=== PATIENT | female | born 1960 | race Two or more races ===

== ENCOUNTER → 2017-12-02 | Emergency (ER) | payer OTHER ==
[~2017-12-02] VITALS: Ht 157.5 cm; Wt 66.7 kg
== END | disposition home or self-care (01) ==
LOC: ER 16:05
DX: R10.32 Left lower quadrant pain (principal); R51 Headache

== ENCOUNTER 2018-08-28 07:26 | Outpatient (CLI) | payer OTHER | END 2018-08-28 07:33 | disposition home or self-care (01) | LOC: MAMO-SONO 07:26 | DX: Z12.31 Encounter for screening mammogram for malignant neoplasm of breast (principal) ==

== ENCOUNTER 2018-12-22 16:01 | Emergency (ER) | payer OTHER ==
[~2018-12-22] VITALS: Ht 157.5 cm; Wt 64.4 kg
== END 2018-12-23 01:32 | disposition home or self-care (01) ==
LOC: ER 16:01
DX: R10.32 Left lower quadrant pain (principal); K29.70 Gastritis, unspecified, without bleeding; R11.0 Nausea

== ENCOUNTER → 2020-05-08 | Emergency (ER) | payer OTHER ==
[~2020-05-08] VITALS: Ht 157.5 cm; Wt 67.1 kg
== END | disposition home or self-care (01) ==
LOC: ER 16:11
DX: R10.84 Generalized abdominal pain (principal)
CPT/HCPCS: 74177; Q9965

== ENCOUNTER → 2020-06-02 | Emergency (ER) | payer OTHER ==
[~2020-06-02] VITALS: Ht 157.5 cm; Wt 68.0 kg
[~2020-06-02] MED LIST: CIPRO500 MG
== END | disposition home or self-care (01) ==
LOC: ER 22:09
DX: R10.13 Epigastric pain (principal); R10.32 Left lower quadrant pain; Z20.828 Contact with and (suspected) exposure to other viral communicable diseases

== ENCOUNTER 2020-09-22 08:05 | Emergency (ER) | payer OTHER ==
[~2020-09-22] VITALS: Ht 162.6 cm; Wt 68.9 kg
[2020-09-22] MEDS ORDERED: VITAMIN C1000 MG PO (11:40)
[2020-09-22] MEDS ORDERED: VITAMIN D3250 MC1 PO (11:40)
[2020-09-22] MEDS ORDERED: ZINC50 M1 PO (11:40)
== END 2020-09-22 11:38 | disposition home or self-care (01) ==
LOC: ER 08:05
DX: U07.1 COVID-19 (principal); J22 Unspecified acute lower respiratory infection; R06.02 Shortness of breath

== ENCOUNTER 2020-10-04 11:51 | Emergency (ER) | payer OTHER ==
[~2020-10-04] VITALS: Ht 157.5 cm; Wt 68.0 kg
[~2020-10-04 11:51] MED LIST changes: +VITAMIN C1000 MG PO; +VITAMIN D3250 MC1 PO; +ZINC50 M1 PO
== END 2020-10-04 17:39 | disposition home or self-care (01) ==
LOC: ER 11:51
DX: U07.1 COVID-19 (principal); R07.89 Other chest pain; R00.2 Palpitations

== ENCOUNTER 2020-11-22 17:10 | Emergency (ER) | payer OTHER ==
[~2020-11-22] VITALS: Ht 160 cm; Wt 71.7 kg
== END 2020-11-22 18:21 | disposition home or self-care (01) ==
LOC: ER 17:10
DX: R05 Cough (principal); Z03.818 Encounter for observation for suspected exposure to other biological agents ruled out

== ENCOUNTER 2021-07-12 09:23 | Outpatient (CLI) | payer OTHER | END 2021-07-25 09:24 | disposition home or self-care (01) | LOC: MAMO-SONO 09:23 | PROVIDERS: ATTEND Specialist | DX: R92.0 Mammographic microcalcification found on diagnostic imaging of breast (principal); Z12.31 Encounter for screening mammogram for malignant neoplasm of breast ==

== ENCOUNTER 2021-12-24 20:34 | Emergency (ER) | payer OTHER ==
[~2021-12-24] VITALS: Ht 160 cm; Wt 63.5 kg
== END 2021-12-24 21:46 | disposition home or self-care (01) ==
LOC: ER 20:34
DX: S00.83XA Contusion of other part of head, initial encounter (principal); X58.XXXA Exposure to other specified factors, initial encounter; Y92.9 Unspecified place or not applicable; R04.0 Epistaxis; Z88.5 Allergy status to narcotic agent

== ENCOUNTER 2022-03-10 12:30 | Outpatient (CLI) | payer OTHER | END 2022-03-10 12:31 | disposition home or self-care (01) | LOC: LAB 12:30 | DX: Z20.822 Contact with and (suspected) exposure to COVID-19 (principal) ==

== ENCOUNTER 2022-04-03 10:59 | Outpatient (CLI) | payer OTHER | END 2022-04-03 11:03 | disposition home or self-care (01) | LOC: NUCLEAR 10:59 | DX: R00.2 Palpitations (principal); Z88.5 Allergy status to narcotic agent ==

== ENCOUNTER 2022-04-03 13:25 | Outpatient (CLI) | payer OTHER | END 2022-04-03 13:35 | disposition home or self-care (01) | LOC: PPH VACUNA 13:25 | PROVIDERS: ATTEND Emergency Medicine Pediatric Emergency Medicine | DX: Z23 Encounter for immunization (principal) ==

== ENCOUNTER 2022-04-18 07:26 | Outpatient (CLI) | payer OTHER | END 2022-04-18 07:27 | disposition home or self-care (01) | LOC: NUCLEAR 07:26 | PROVIDERS: ATTEND Internal Medicine | DX: R00.2 Palpitations (principal) | CPT/HCPCS: 78452; 93017; A9500; J0153 ==

== ENCOUNTER → 2022-09-12 | Emergency (ER) | payer OTHER ==
[~2022-09-12] VITALS: Ht 157.5 cm; Wt 68.0 kg
== END | disposition home or self-care (01) ==
LOC: ER 14:42
DX: K76.0 Fatty (change of) liver, not elsewhere classified (principal); K57.90 Diverticulosis of intestine, part unspecified, without perforation or abscess without bleeding; Z20.822 Contact with and (suspected) exposure to COVID-19

== ENCOUNTER 2023-11-07 14:25 | Emergency (ER) | payer OTHER ==
[~2023-11-07] VITALS: Ht 157.5 cm; Wt 68.9 kg
[~2023-11-07 14:25] MED LIST changes: +INDERAL LA80 MG PO
[2023-11-07 17:00] LABS: HEMATOCRIT 43.7 % (36.0-45.00); HEMOGLOBIN 14.6 g/dL (12.0-15.00); MEAN CELL VOLUME 94.5 fL (80.00-100.00); MEAN CORPUSCULAR HEMOGLOBIN 31.6 pg (27.00-32.0); MEAN CORPUSCULAR HGB CONC 33.4 g/dl (32.0-36.0); PLATELET COUNT 330 K/uL (150-450); RED BLOOD COUNT 4.62 M/uL (4.00-6.00); RED CELL DISTRIBUTION WIDTH 12.7 % (11.5-14.5)
[2023-11-07 17:22] LABS: CALCIUM 9.5 mg/dL (8.5-10.1); CREATININE SERUM 0.83 mg/dL (0.55-1.02); GFR 69.66; POTASSIUM 4.07 mEq/L (3.5-5.1)
[2023-11-07 17:42] LABS: URINE APPEARANCE Clear; URINE BILIRRUBIN Negative (NEGATIVE); URINE BLOOD Negative; URINE COLOR Yellow; URINE GLUCOSE Negative (NEGATIVE); URINE LEUKOCYTE Moderate; URINE NITRATE Negative; URINE PROTEIN Negative (NEGATIVE); URINE UROBILINOGEN 0.2 E.U./dl
[2023-11-07 17:47] LABS: URINE BACTERIA 249.4 uL (0.0-1933); URINE EPITHELIAL CELLS 19.3 uL (0.0-38.8); URINE RBC 3.5 uL (0.0-20.8); URINE WBC 145.4 uL (0.0-23.2)
== END 2023-11-07 17:50 | disposition home or self-care (01) ==
LOC: ER 14:25
PROVIDERS: General Practice
DX: K21.9 Gastro-esophageal reflux disease without esophagitis (principal)

== ENCOUNTER 2024-05-05 15:01 | Emergency (ER) | payer OTHER ==
[~2024-05-05] VITALS: Ht 160 cm; Wt 70.8 kg
[2024-05-05] MEDS ORDERED: 0.9 % SODIUM CHLORIDE 500 ML IV ONE (15:30)
[2024-05-05] MEDS ORDERED: FAMOTIDINE/PF 20 MG/2 ML VIAL IV ONE (15:30)
[2024-05-05] MEDS ORDERED: KETOROLAC TROMETHAMINE 30 MG VIAL IV ONE (15:30)
[2024-05-05 16:05] LABS: HEMATOCRIT 39.8 % (36.0-45.00); HEMOGLOBIN 13.4 g/dL (12.0-15.00); MEAN CELL VOLUME 93.2 fL (80.00-100.00); MEAN CORPUSCULAR HEMOGLOBIN 31.4 pg (27.00-32.0); MEAN CORPUSCULAR HGB CONC 33.7 g/dl (32.0-36.0); PLATELET COUNT 315 K/uL (150-450); RED BLOOD COUNT 4.27 M/uL (4.00-6.00); RED CELL DISTRIBUTION WIDTH 13.1 % (11.5-14.5)
[2024-05-05 16:07] LABS: URINE APPEARANCE Cloudy; URINE BACTERIA 1908.7 uL (0.0-1933); URINE BILIRRUBIN Negative (NEGATIVE); URINE BLOOD Negative; URINE COLOR Yellow; URINE EPITHELIAL CELLS 94.7 uL (0.0-38.8); URINE GLUCOSE Negative (NEGATIVE); URINE LEUKOCYTE Moderate; URINE NITRATE Negative; URINE PROTEIN Negative (NEGATIVE); URINE RBC 5.3 uL (0.0-20.8); URINE UROBILINOGEN 0.2 E.U./dl; URINE WBC 274.1 uL (0.0-23.2)
[2024-05-05 16:41] LABS: ALBUMIN 3.5 gm/dL (3.4-5.0); BILIRUBIN TOTAL 0.5 mg/dL (0.3-1.2); CALCIUM 9.1 mg/dL (8.5-10.1); CREATININE SERUM 0.81 mg/dL (0.55-1.02); GFR 71.64; GLOBULINA 3.9 G/DL (2.4-3.5); POTASSIUM 4.08 mEq/L (3.5-5.1); TOTAL PROTEIN 7.4 gm/dL (6.4-8.2)
[2024-05-05] MEDS ORDERED: levoFLOXacin IN DEXTROSE 5 % 5 MG/ML PIGGYBAG IV ONE (17:15)
[2024-05-05] MEDS ORDERED: LEVOFLOXACIN750 MG PO (17:24)
== END 2024-05-05 18:42 ==
LOC: ER 15:02
PROVIDERS: Nurse Practitioner Family
DX: R10.32 Left lower quadrant pain (principal); K57.32 Diverticulitis of large intestine without perforation or abscess without bleeding; G43.809 Other migraine, not intractable, without status migrainosus; Z88.8 Allergy status to other drugs, medicaments and biological substances

== ENCOUNTER 2024-08-13 07:15 | Outpatient (CLI) | payer OTHER ==
[~2024-08-13 07:15] MED LIST changes: +LEVOFLOXACIN750 MG PO
== END 2024-08-13 07:25 | disposition home or self-care (01) ==
LOC: MAMO-SONO 07:15
PROVIDERS: ATTEND Specialist
DX: R10.13 Epigastric pain (principal); N60.11 Diffuse cystic mastopathy of right breast; N60.12 Diffuse cystic mastopathy of left breast

== ENCOUNTER 2024-11-13 10:07 | Outpatient (CLI) | payer OTHER | END 2024-11-13 10:21 | disposition home or self-care (01) | LOC: TOM 10:07 | PROVIDERS: ATTEND Internal Medicine Gastroenterology | DX: K76.0 Fatty (change of) liver, not elsewhere classified (principal) ==

== ENCOUNTER 2025-01-16 11:41 | Outpatient (CLI) | payer OTHER ==
[2025-01-16 13:00] LABS: CREATININE SERUM 0.83 mg/dL (0.55-1.02); GFR 69.43
== END 2025-01-16 11:46 | disposition home or self-care (01) ==
LOC: LAB 11:41
PROVIDERS: ATTEND Radiology Diagnostic Radiology
DX: R10.9 Unspecified abdominal pain (principal); K40.00 Bilateral inguinal hernia, with obstruction, without gangrene, not specified as recurrent

== ENCOUNTER → 2025-01-16 | Outpatient (CLI) | payer OTHER | END | disposition home or self-care (01) | LOC: MRI 12:34 | DX: R10.9 Unspecified abdominal pain (principal); K40.00 Bilateral inguinal hernia, with obstruction, without gangrene, not specified as recurrent | CPT/HCPCS: 72197; 74181 ==

== ENCOUNTER 2025-01-24 07:36 | Outpatient (CLI) | payer OTHER ==
[2025-01-24 09:12] LABS: C-REACTIVE PROTEIN 0.45 MG/DL (0.00-0.29)
== END 2025-01-24 07:37 | disposition home or self-care (01) ==
LOC: LAB 07:36
PROVIDERS: ATTEND Internal Medicine Hematology & Oncology
DX: C83.80 Other non-follicular lymphoma, unspecified site (principal); C88.80 Other malignant immunoproliferative diseases not having achieved remission

== ENCOUNTER → 2025-01-29 | Outpatient (CLI) | payer OTHER | END | disposition home or self-care (01) | LOC: SONOGRAMA 10:21 | PROVIDERS: ATTEND Pathology Anatomic Pathology & Clinical Pathology | DX: C85.15 Unspecified B-cell lymphoma, lymph nodes of inguinal region and lower limb (principal) ==

== ENCOUNTER 2025-02-06 07:27 | Outpatient (CLI) | payer OTHER | END 2025-02-06 07:28 | disposition home or self-care (01) | LOC: NUCLEAR 07:27 | PROVIDERS: ATTEND Internal Medicine Hematology & Oncology | DX: C08.0 Malignant neoplasm of submandibular gland (principal) ==

== ENCOUNTER 2025-03-03 06:48 | Day surgery (SDC) | payer OTHER ==
[2025-02-25 07:55] VITALS: BP 116/76
[2025-02-25 08:16] LABS: URINE APPEARANCE Clear; URINE BILIRRUBIN Negative (NEGATIVE); URINE BLOOD Negative; URINE COLOR Yellow; URINE GLUCOSE Negative (NEGATIVE); URINE KETONE Negative (NEGATIVE); URINE LEUKOCYTE Moderate; URINE NITRATE Negative; URINE PROTEIN Negative (NEGATIVE); URINE UROBILINOGEN 0.2 E.U./dl
[2025-02-25 08:17] LABS: URINE BACTERIA 327.9 uL (0.0-1933); URINE EPITHELIAL CELLS 19.3 uL (0.0-38.8); URINE WBC 64.8 uL (0.0-23.2)
[2025-02-25 08:19] LABS: HEMATOCRIT 39.8 % (36.0-45.00); HEMOGLOBIN 13.3 g/dL (12.0-15.00); MEAN CELL VOLUME 94.7 fL (80.00-100.00); MEAN CORPUSCULAR HEMOGLOBIN 31.6 pg (27.00-32.0); MEAN CORPUSCULAR HGB CONC 33.4 g/dl (32.0-36.0); PLATELET COUNT 288 K/uL (150-450); RED BLOOD COUNT 4.21 M/uL (4.00-6.00); RED CELL DISTRIBUTION WIDTH 12.8 % (11.5-14.5)
[2025-02-25 08:57] LABS: INR 0.94; PARTIAL THROMBOPLASTIN TIME 25.4 SECONDS (22.0-34.0); PROTHROMBIN TIME 10.3 SECONDS (9.0-11.5)
[2025-02-25 09:04] LABS: ALBUMIN 3.6 gm/dL (3.4-5.0); BILIRUBIN TOTAL 0.39 mg/dL (0.3-1.2); CALCIUM 9.6 mg/dL (8.5-10.1); CREATININE SERUM 0.78 mg/dL (0.55-1.02); GFR 74.59; GLOBULINA 3.5 G/DL (2.4-3.5); POTASSIUM 4.29 mEq/L (3.5-5.1); TOTAL PROTEIN 7.1 gm/dL (6.4-8.2)
[2025-02-25 09:05] LABS: URINE RBC 1.9 uL (0.0-20.8)
[~2025-03-03] VITALS: Ht 160 cm; Wt 68.0 kg
[2025-03-03] MEDS ORDERED: CEFAZOLIN SODIUM 1,000 MG VIAL ONE ×2 (12:24→15:31)
[2025-03-03] MEDS ORDERED: HEPARIN SODIUM,PORCINE/PF 100 UNIT/ML SYRINGE IV ONE (12:56)
[2025-03-03] MEDS ORDERED: LIDOCAINE HCL 1% 20 ML VIAL IJ ONE ×2 (13:25→13:43)
[2025-03-03] MEDS ORDERED: FAMOTIDINE/PF 20 MG/10 ML SYRINGE IV SCH (15:30)
[2025-03-03] MEDS ORDERED: CEFAZOLIN SODIUM 1,000 MG VIAL IV SCH (15:30)
[2025-03-03] MEDS ORDERED: FAMOTIDINE/PF 20 MG/2 ML VIAL ONE (15:31)
== END 2025-03-03 16:05 | disposition home or self-care (01) ==
LOC: CIR.AMB 06:48
PROVIDERS: ATTEND Specialist
DX: C85.94 Non-Hodgkin lymphoma, unspecified, lymph nodes of axilla and upper limb (principal)
CPT/HCPCS: 36561; C1751

== ENCOUNTER 2025-04-11 07:19 | Outpatient (CLI) | payer OTHER ==
[2025-04-11 08:37] LABS: BASO % 1.3 % (0.1-1.2); EOS # 0.07 (0.04-0.54); EOS % 1.2 % (0.7-7.0); LYMPH # 1.69 (1.18-3.74); MEAN CORPUSCULAR HEMOGLOBIN 30.7 pg (25.6-32.2); MONO # 1.09 (0.24-0.82); NEUT # 3.07 (1.56-6.13); NEUT % 50.8 % (34.0-71.1); PLATELET COUNT 399 K/uL (163-369); RED BLOOD COUNT 4.23 M/uL (3.93-5.22); RED CELL DISTRIBUTION WIDTH 12.1 % (11.6-14.4)
[2025-04-11 09:32] LABS: ALBUMIN 3.6 gm/dL (3.4-5.0); BILIRUBIN TOTAL 0.29 mg/dL (0.3-1.2); CREATININE SERUM 0.76 mg/dL (0.55-1.02); GFR 76.86; GLOBULINA 3.8 G/DL (2.4-3.5); POTASSIUM 4.04 mEq/L (3.5-5.1); TOTAL PROTEIN 7.4 gm/dL (6.4-8.2)
== END 2025-04-11 07:26 | disposition home or self-care (01) ==
LOC: LAB 07:19
PROVIDERS: ATTEND Internal Medicine Hematology & Oncology
DX: D64.9 Anemia, unspecified (principal); R74.01 Elevation of levels of liver transaminase levels

== ENCOUNTER 2025-05-09 07:14 | Outpatient (CLI) | payer OTHER ==
[2025-05-09 08:36] LABS: EOS # 0.11 (0.04-0.54); EOS % 2.0 % (0.7-7.0); LYMPH # 0.94 (1.18-3.74); LYMPH % 17.2 % (19.3-53.1); MEAN PLATELET VOLUME 9.20 fl (9.4-12.4); MONO # 1.24 (0.24-0.82); NEUT # 2.97 (1.56-6.13); NEUT % 54.3 % (34.0-71.1); RED CELL DISTRIBUTION WIDTH 13.0 % (11.6-14.4)
[2025-05-09 08:37] LABS: BASO % 3.1 % (0.1-1.2); MONO % 22.7 % (4.7-12.5)
== END 2025-05-09 07:20 | disposition home or self-care (01) ==
LOC: LAB 07:14
PROVIDERS: ATTEND Internal Medicine Hematology & Oncology
DX: D50.0 Iron deficiency anemia secondary to blood loss (chronic) (principal); D63.8 Anemia in other chronic diseases classified elsewhere; D63.0 Anemia in neoplastic disease; D50.8 Other iron deficiency anemias

== ENCOUNTER 2025-05-25 07:37 | Inpatient (IN) | payer OTHER ==
[~2025-05-25] VITALS: Ht 160 cm; Wt 64.9 kg
--- NOTE | 2025-05-25 07:49 | NUR ---
PACIENTE FEMINA, S/V EN PARAMETROS, C/C SUDORACION HX CANCER UBICADA EN SECCION K PARA SER REEVALUADA POR
[2025-05-25] MEDS ORDERED: 0.9 % SODIUM CHLORIDE 1,000 ML IV STA (08:33)
--- NOTE | 2025-05-25 10:11 | NUR ---
SE EDUCA SOBRE [place] MEDICO, ESTA REFIERE ENTENDER. SE EXTRAEN MUESTRAS DE LABORATORIO KEN ORDEN MEDICA. PENDIENTE U/A.
[2025-05-25 10:32] LABS: EOS # 0.04 (0.04-0.54); EOS % 7.8 % (0.7-7.0); LYMPH # 0.21 (1.18-3.74); LYMPH % 41.2 % (19.3-53.1); MEAN PLATELET VOLUME 9.30 fl (9.4-12.4); MONO # 0.16 (0.24-0.82); NEUT # 0.07 (1.56-6.13); NEUT % 13.7 % (34.0-71.1); RED CELL DISTRIBUTION WIDTH 13.2 % (11.6-14.4)
[2025-05-25 10:36] LABS: BASO % 5.9 % (0.1-1.2); MONO % 31.4 % (4.7-12.5)
[2025-05-25] MEDS ORDERED: FILGRASTIM-AAFI 480 MCG/0.8 ML SYRINGE SUBCUTANEO ONE ×2 (10:45→11:00)
[2025-05-25 10:58] LABS: COVID-19 AG NEGATIVE (NEGATIVE)
[2025-05-25 11:15] LABS: URINE APPEARANCE Clear; URINE BILIRRUBIN Negative (NEGATIVE); URINE BLOOD Negative; URINE COLOR Yellow; URINE GLUCOSE Negative (NEGATIVE); URINE KETONE Negative (NEGATIVE); URINE LEUKOCYTE Negative; URINE NITRATE Negative; URINE PROTEIN Negative (NEGATIVE); URINE UROBILINOGEN 0.2 E.U./dl
[2025-05-25 11:17] LABS: URINE BACTERIA 264.0 uL (0.0-1933); URINE EPITHELIAL CELLS 10.2 uL (0.0-38.8); URINE WBC 5.3 uL (0.0-23.2)
[2025-05-25 11:25] LABS: ALT/SGPT 59.0 U/L (12-78); AST/SGOT 43.0 U/L (15-37); BILIRUBIN TOTAL 0.52 mg/dL (0.3-1.2); BUN CREA RATIO 10.0 (7.0-25.0); CREATININE SERUM 0.63 mg/dL (0.55-1.02); GFR 95.44; GLOBULINA 4.1 G/DL (2.4-3.5); GLUCOSE FASTING 100.0 mg/dL (65-100); OSMOLALITY SERUM 279.0 MOSM/KG (275-295)
[2025-05-25 11:57] LABS: URINE CAST 0.14 uL (0.0-1.40); URINE RBC 1.7 uL (0.0-20.8)
[2025-05-25] MEDS ORDERED: 0.9 % SODIUM CHLORIDE 1,000 ML IV SCH (18:30)
[2025-05-25] MEDS ORDERED: PIPERACILLIN/TAZOBACTAM SODIUM 3.375 GM in DEXTROSE 5 % IN WATER 100 ML IV SCH (18:35)
[2025-05-25] MEDS ORDERED: FAMOTIDINE/PF 20 MG in 0.9 % SODIUM CHLORIDE 8 ML IV PUSH SCH (18:35)
[2025-05-25] MEDS ORDERED: ONDANSETRON HCL 4 MG in 0.9 % SODIUM CHLORIDE 50 ML IV PRN (18:45)
[2025-05-25] MEDS ORDERED: ACETAMINOPHEN 500 MG GEL..CAP PO PRN (18:45)
[2025-05-25 21:27] VITALS: BP 123/81; O2SAT 96
[2025-05-25 22:34] LABS: INR 1.01
[2025-05-26 00:26] VITALS: BP 103/60; O2SAT 98
[2025-05-26 08:00] VITALS: BP 98/65; O2SAT 96
[2025-05-26] MEDS ORDERED: ENOXAPARIN SODIUM 40 MG/0.4 ML SYRINGE SUBCUTANEO SCH (09:00)
[2025-05-26] MEDS ORDERED: FILGRASTIM-AAFI 480 MCG/0.8 ML SYRINGE SUBCUTANEO SCH ×2 (09:00→12:00)
[2025-05-26 16:48] LABS: BASO % 2.0 % (0.1-1.2); EOS # 0.06 (0.04-0.54); EOS % 4.0 % (0.7-7.0); LYMPH # 0.41 (1.18-3.74); LYMPH % 27.3 % (19.3-53.1); MEAN PLATELET VOLUME 9.40 fl (9.4-12.4); MONO # 0.36 (0.24-0.82); NEUT # 0.63 (1.56-6.13); NEUT % 42.0 % (34.0-71.1); RED CELL DISTRIBUTION WIDTH 13.3 % (11.6-14.4)
[2025-05-26 17:12] LABS: MONO % 24.0 % (4.7-12.5)
[2025-05-26 17:15] LABS: LDH 290 U/L (84-246)
[2025-05-26 17:25] VITALS: BP 110/73; O2SAT 95
[2025-05-27 00:30] VITALS: BP 92/55; O2SAT 97
[2025-05-27 06:55] LABS: EOS # 0.09 (0.04-0.54); EOS % 2.7 % (0.7-7.0); LYMPH # 0.51 (1.18-3.74); LYMPH % 15.1 % (19.3-53.1); MEAN PLATELET VOLUME 9.50 fl (9.4-12.4); MONO # 0.69 (0.24-0.82); NEUT # 1.97 (1.56-6.13); NEUT % 58.2 % (34.0-71.1); RED CELL DISTRIBUTION WIDTH 13.6 % (11.6-14.4)
[2025-05-27 07:28] LABS: BAND MAN 8.0 %; BASO % 2.1 % (0.1-1.2); BASOPHIL MAN 1.0 %; EOSINOPHIL MAN 3.0 %; LYMPHOCYTE MAN 27.0 %; METAMYELOCYTE 2.0 %; MONO % 20.4 % (4.7-12.5); MONOCYTE MAN 8.0 %; NEUTROPHILS MAN 44.0 %
[2025-05-27 09:40] VITALS: BP 88/60; O2SAT 96
[2025-05-27 17:15] VITALS: BP 102/65; O2SAT 95
[2025-05-28 00:40] VITALS: BP 95/60; O2SAT 95
[2025-05-28 08:59] VITALS: BP 100/64; O2SAT 94
== END 2025-05-28 18:00 | disposition home or self-care (01) | DRG 872 ==
LOC: ER 07:37 → SURH 18:55 → MEDJ 18:55 → SEC-K 19:26 → SURH 19:43
PROVIDERS: Emergency Medicine; General Practice; Internal Medicine Hematology & Oncology; Internal Medicine Infectious Disease; ADMIT Student in an Organized Health Care Education/Training Program; ATTEND Student in an Organized Health Care Education/Training Program
DX: A41.9 Sepsis, unspecified organism (principal); C85.9A Non-Hodgkin lymphoma, unspecified, in remission; D61.818 Other pancytopenia; D70.9 Neutropenia, unspecified

== ENCOUNTER 2025-05-29 06:30 | Outpatient (CLI) | payer OTHER ==
[2025-05-29 07:20] LABS: BASO % 1.6 % (0.1-1.2); EOS # 0.04 (0.04-0.54); EOS % 0.7 % (0.7-7.0); LYMPH # 0.81 (1.18-3.74); LYMPH % 14.1 % (19.3-53.1); MEAN PLATELET VOLUME 9.30 fl (9.4-12.4); MONO # 1.28 (0.24-0.82); NEUT # 2.87 (1.56-6.13); NEUT % 49.8 % (34.0-71.1); RED CELL DISTRIBUTION WIDTH 14.0 % (11.6-14.4)
[2025-05-29 07:28] LABS: ERYTHROCYTE SEDIMENTATION RATE 75 mm/hr (0-30)
[2025-05-29 07:46] LABS: BAND MAN 5.0 %; BASOPHIL MAN 4.0 %; EOSINOPHIL MAN 1.0 %; LYMPHOCYTE MAN 12.0 %; MONO % 22.2 % (4.7-12.5); MONOCYTE MAN 29.0 %; NEUTROPHILS MAN 47.0 %
[2025-05-29 08:18] LABS: ALT/SGPT 60.0 U/L (12-78); AST/SGOT 60.0 U/L (15-37); BILIRUBIN TOTAL 0.41 mg/dL (0.3-1.2); BUN CREA RATIO 6.0 (7.0-25.0); CREATININE SERUM 0.77 mg/dL (0.55-1.02); GFR 75.71; GLOBULINA 3.4 G/DL (2.4-3.5); GLUCOSE FASTING 101.0 mg/dL (65-100); LDH 470.0 U/L (84-246); OSMOLALITY SERUM 275.0 MOSM/KG (275-295)
[2025-05-30 15:13] LABS: kappa lambda r 1.2 (0.26-1.65); kappa light 21.6 mg/L (3.3-19.4)
[2025-05-31 15:07] LABS: BETA-2-MICROGLOBULINA 3.0 mg/L (0.6-2.4)
== END 2025-05-29 06:32 | disposition home or self-care (01) ==
LOC: LAB 06:30
PROVIDERS: ATTEND Internal Medicine Hematology & Oncology
DX: C85.18 Unspecified B-cell lymphoma, lymph nodes of multiple sites (principal); D64.9 Anemia, unspecified; R74.01 Elevation of levels of liver transaminase levels; R70.1 Abnormal plasma viscosity; I77.6 Arteritis, unspecified

== ENCOUNTER 2025-06-19 10:06 | Outpatient (CLI) | payer OTHER ==
[2025-06-19 10:57] LABS: EOS # 0.99 (0.04-0.54); LYMPH # 1.20 (1.18-3.74); LYMPH % 20.8 % (19.3-53.1); MEAN PLATELET VOLUME 9.30 fl (9.4-12.4); MONO # 1.27 (0.24-0.82); NEUT # 2.16 (1.56-6.13); NEUT % 37.4 % (34.0-71.1); RED CELL DISTRIBUTION WIDTH 14.6 % (11.6-14.4)
[2025-06-19 11:25] LABS: ALT/SGPT 61.0 U/L (12-78); AST/SGOT 42.0 U/L (15-37); BILIRUBIN TOTAL 0.38 mg/dL (0.3-1.2); BUN CREA RATIO 13.0 (7.0-25.0); CREATININE SERUM 0.62 mg/dL (0.55-1.02); GFR 97.22; GLOBULINA 4.2 G/DL (2.4-3.5); GLUCOSE FASTING 104.0 mg/dL (65-100); OSMOLALITY SERUM 282.0 MOSM/KG (275-295)
[2025-06-19 11:53] LABS: BASO % 2.4 % (0.1-1.2); EOS % 17.1 % (0.7-7.0); MONO % 22.0 % (4.7-12.5)
[2025-06-19 11:54] LABS: EOSINOPHIL MAN 22.0 %; LYMPHOCYTE MAN 22.0 %; MONOCYTE MAN 12.0 %; NEUTROPHILS MAN 44.0 %
== END 2025-06-19 10:07 | disposition home or self-care (01) ==
LOC: LAB 10:06
PROVIDERS: ATTEND Internal Medicine Hematology & Oncology
DX: D64.9 Anemia, unspecified (principal); R74.01 Elevation of levels of liver transaminase levels

== ENCOUNTER 2025-07-18 07:04 | Outpatient (CLI) | payer OTHER ==
[2025-07-18 09:30] LABS: EOS # 0.24 (0.04-0.54); EOS % 4.3 % (0.7-7.0); LYMPH # 1.00 (1.18-3.74); LYMPH % 17.8 % (19.3-53.1); MEAN PLATELET VOLUME 9.10 fl (9.4-12.4); MONO # 0.99 (0.24-0.82); NEUT # 3.21 (1.56-6.13); NEUT % 57.0 % (34.0-71.1); RED CELL DISTRIBUTION WIDTH 14.1 % (11.6-14.4)
[2025-07-18 09:36] LABS: BASO % 2.8 % (0.1-1.2); MONO % 17.6 % (4.7-12.5)
[2025-07-18 10:13] LABS: ALT/SGPT 49.0 U/L (12-78); AST/SGOT 35.0 U/L (15-37); BILIRUBIN TOTAL 0.33 mg/dL (0.3-1.2); BUN CREA RATIO 13.0 (7.0-25.0); CREATININE SERUM 0.6 mg/dL (0.55-1.02); GFR 100.97; GLOBULINA 3.6 G/DL (2.4-3.5); GLUCOSE FASTING 92.0 mg/dL (65-100); OSMOLALITY SERUM 281.0 MOSM/KG (275-295)
== END 2025-07-18 07:07 | disposition home or self-care (01) ==
LOC: LAB 07:04
PROVIDERS: ATTEND Internal Medicine Hematology & Oncology
DX: R59.0 Localized enlarged lymph nodes (principal); E83.51 Hypocalcemia; E83.42 Hypomagnesemia; D64.9 Anemia, unspecified; R74.01 Elevation of levels of liver transaminase levels

== ENCOUNTER 2025-08-17 06:21 | Outpatient (CLI) | payer OTHER ==
[2025-08-17 07:12] LABS: EOS # 0.24 (0.04-0.54); EOS % 4.1 % (0.7-7.0); LYMPH # 1.19 (1.18-3.74); LYMPH % 20.6 % (19.3-53.1); MEAN PLATELET VOLUME 9.00 fl (9.4-12.4); MONO # 0.96 (0.24-0.82); NEUT # 3.23 (1.56-6.13); NEUT % 55.8 % (34.0-71.1); RED CELL DISTRIBUTION WIDTH 13.4 % (11.6-14.4)
[2025-08-17 07:13] LABS: BASO % 2.6 % (0.1-1.2); MONO % 16.6 % (4.7-12.5)
[2025-08-17 07:32] LABS: ALT/SGPT 57.0 U/L (12-78); AST/SGOT 38.0 U/L (15-37); BILIRUBIN TOTAL 0.23 mg/dL (0.3-1.2); BUN CREA RATIO 15.0 (7.0-25.0); CREATININE SERUM 0.62 mg/dL (0.55-1.02); GFR 96.91; GLOBULINA 3.2 G/DL (2.4-3.5); GLUCOSE FASTING 114.0 mg/dL (65-100); OSMOLALITY SERUM 285.0 MOSM/KG (275-295)
== END 2025-08-17 06:23 | disposition home or self-care (01) ==
LOC: LAB 06:21
PROVIDERS: ATTEND Internal Medicine Hematology & Oncology
DX: D64.9 Anemia, unspecified (principal); R74.01 Elevation of levels of liver transaminase levels

== ENCOUNTER → 2025-09-02 06:27 | Outpatient (CLI) | payer OTHER ==
[2025-09-02 07:09] LABS: EOS # 0.18 (0.04-0.54); EOS % 10.4 % (0.7-7.0); LYMPH # 0.71 (1.18-3.74); LYMPH % 41.0 % (19.3-53.1); MEAN PLATELET VOLUME 8.90 fl (9.4-12.4); MONO # 0.50 (0.24-0.82); NEUT # 0.29 (1.56-6.13); NEUT % 16.8 % (34.0-71.1); RED CELL DISTRIBUTION WIDTH 13.2 % (11.6-14.4)
[2025-09-02 07:18] LABS: ERYTHROCYTE SEDIMENTATION RATE 28 mm/hr (0-30)
[2025-09-02 07:27] LABS: URINE APPEARANCE Cloudy; URINE BILIRRUBIN Negative (NEGATIVE); URINE BLOOD Negative; URINE COLOR Yellow; URINE GLUCOSE Negative (NEGATIVE); URINE KETONE Trace (NEGATIVE); URINE LEUKOCYTE Moderate; URINE NITRATE Negative; URINE PROTEIN Trace (NEGATIVE); URINE UROBILINOGEN 0.2 E.U./dl
[2025-09-02 07:30] LABS: URINE BACTERIA 282.0 uL (0.0-1933); URINE CAST 1.75 uL (0.0-1.40); URINE EPITHELIAL CELLS 35.9 uL (0.0-38.8); URINE RBC 5.5 uL (0.0-20.8); URINE WBC 222.6 uL (0.0-23.2)
[2025-09-02 07:30] LABS: BASO % 2.9 % (0.1-1.2); MONO % 28.9 % (4.7-12.5)
[2025-09-02 07:53] LABS: ALT/SGPT 63.0 U/L (12-78); AST/SGOT 43.0 U/L (15-37); BILIRUBIN TOTAL 0.4 mg/dL (0.3-1.2); BUN CREA RATIO 13.0 (7.0-25.0); CHOL HDL RATIO 3.5 (0-5.0); CREATININE SERUM 0.77 mg/dL (0.55-1.02); GFR 75.47; GLOBULINA 3.4 G/DL (2.4-3.5); GLUCOSE FASTING 113.0 mg/dL (65-100); HDL 59.0 mg/dl (40-60); LDL 119.0 mg/dl (0-130); OSMOLALITY SERUM 285.0 MOSM/KG (275-295); TSH 1.87 uIU/mL (0.358-3.74); VLDL 31.0 (0-39)
[2025-09-02 09:13] LABS: URINE CRYSTALS MODERATE /HPF; URINE MUCUS MODERATE
[2025-09-03 14:07] LABS: kappa lambda r 1.4 (0.26-1.65); kappa light 20.7 mg/L (3.3-19.4)
[2025-09-04 08:10] LABS: BETA-2-MICROGLOBULINA 1.8 mg/L (0.6-2.4)
== END | disposition home or self-care (01) ==
LOC: LAB 06:27
PROVIDERS: ATTEND Internal Medicine Hematology & Oncology
DX: D50.8 Other iron deficiency anemias (principal); R74.8 Abnormal levels of other serum enzymes; R70.0 Elevated erythrocyte sedimentation rate; E78.2 Mixed hyperlipidemia; E03.8 Other specified hypothyroidism; N39.0 Urinary tract infection, site not specified; C85.18 Unspecified B-cell lymphoma, lymph nodes of multiple sites; R79.82 Elevated C-reactive protein (CRP)

== ENCOUNTER 2025-09-12 07:21 | Outpatient (CLI) | payer OTHER ==
[2025-09-12 08:02] LABS: EOS # 0.22 (0.04-0.54); EOS % 4.5 % (0.7-7.0); LYMPH # 1.49 (1.18-3.74); LYMPH % 30.2 % (19.3-53.1); MEAN PLATELET VOLUME 9.00 fl (9.4-12.4); MONO # 0.95 (0.24-0.82); NEUT # 2.13 (1.56-6.13); NEUT % 43.2 % (34.0-71.1); RED CELL DISTRIBUTION WIDTH 13.3 % (11.6-14.4)
[2025-09-12 08:13] LABS: BASO % 2.4 % (0.1-1.2); MONO % 19.3 % (4.7-12.5)
[2025-09-12 11:03] LABS: ALT/SGPT 53.0 U/L (12-78); AST/SGOT 43.0 U/L (15-37); BILIRUBIN TOTAL 0.36 mg/dL (0.3-1.2); BUN CREA RATIO 12.0 (7.0-25.0); CREATININE SERUM 0.69 mg/dL (0.55-1.02); GFR 85.65; GLOBULINA 4.0 G/DL (2.4-3.5); GLUCOSE FASTING 108.0 mg/dL (65-100); OSMOLALITY SERUM 282.0 MOSM/KG (275-295)
== END 2025-09-12 07:29 | disposition home or self-care (01) ==
LOC: LAB 07:21
PROVIDERS: ATTEND Internal Medicine Hematology & Oncology
DX: D64.9 Anemia, unspecified (principal); R74.01 Elevation of levels of liver transaminase levels

== ENCOUNTER 2025-10-01 07:08 | Outpatient (CLI) | payer OTHER | END 2025-10-01 07:09 | disposition home or self-care (01) | LOC: NUCLEAR 07:08 | PROVIDERS: ATTEND Internal Medicine Hematology & Oncology | DX: C85.18 Unspecified B-cell lymphoma, lymph nodes of multiple sites (principal) ==

== ENCOUNTER 2025-10-19 09:37 | Outpatient (CLI) | payer OTHER | END 2025-10-19 09:39 | disposition home or self-care (01) | LOC: SONOGRAMA 09:37 | PROVIDERS: ATTEND Pathology Anatomic Pathology & Clinical Pathology | DX: D11.0 Benign neoplasm of parotid gland (principal) ==